=== PATIENT | female | born 1950 | race Caucasian/White ===

== ENCOUNTER 2023-03-16 09:54 | Emergency (ER) | payer OTHER ==
[~2023-03-16] VITALS: Ht 160 cm; Wt 56.7 kg
[2023-03-16 10:06] VITALS: BP_SYST 160
[2023-03-16] MEDS ORDERED: KETOROLAC TROMETHAMINE 30 MG VIAL IM ONE (12:15)
[2023-03-16] MEDS ORDERED: CYCL10TA24 PO (13:15)
[2023-03-16] MEDS ORDERED: LIDO1ADH22 TP (13:15)
[2023-03-16] MEDS ORDERED: ACET-2634 PO (13:15)
[2023-03-16] MEDS ORDERED: NAPR-1172 PO (13:15)
[2023-03-16 13:27] VITALS: BP_SYST 131
== END 2023-03-16 13:28 | disposition home or self-care (01) ==
LOC: SED 09:54
DX: S63.502A Unspecified sprain of left wrist, initial encounter (principal); S30.0XXA Contusion of lower back and pelvis, initial encounter; I10 Essential (primary) hypertension; Z88.2 Allergy status to sulfonamides; Z79.899 Other long term (current) drug therapy; W18.30XA Fall on same level, unspecified, initial encounter; Y93.89 Activity, other specified; Y92.89 Other specified places as the place of occurrence of the external cause; Y99.8 Other external cause status
CPT/HCPCS: 99284; 72170; 72220; 73110; 29125; 96372; J1885